=== PATIENT | male | born 1985 | race Caucasian/White ===

== ENCOUNTER 2019-12-01 20:09 | Emergency (ER) | payer MEDICAID ==
[~2019-12-01] VITALS: Ht 175.3 cm; Wt 127.0 kg
[2019-12-01] MEDS ORDERED: VALPROIC ACID 250MG CAPSULE PO ONE (21:00)
[2019-12-01] MEDS: RISPERIDONE 1MG TABLET PO SCH (21:13)
[2019-12-01 21:22] LABS: BASOPHILS % 0.5 % (0.0-2.0); EOSINOPHILS % 1.3 % (0.0-5.0); HEMATOCRIT. 40.4 % (42.0-52.0); HEMOGLOBIN. 13.9 g/dL (14.0-18.0); LYMPHOCYTES % 17.1 % (20.0-50.0); MEAN CORPUSCULAR HEMOGLOBIN 29.8 pg (28.0-32.0); MEAN CORPUSCULAR VOLUME 86.9 fL (80.0-94.0); MEAN PLATELET VOLUME 7.8 fl (7.4-10.4); MONOCYTES % 9.9 % (2.0-8.0); NEUTROPHILS % 71.2 % (40.0-76.0); PLATELET 164 x1000/uL (130-400); RED BLOOD CELL COUNT 4.64 mill/uL (4.7-6.1); RED CELL DISTRIBUTION WIDTH 13.6 % (11.6-14.6)
[2019-12-01 21:28] LABS: CHLORIDE 107 mEq/L (98-107)
[2019-12-01 21:33] LABS: ETHANOL BLOOD < 10 mg/dL
[2019-12-01 21:36] LABS: CLARITY URINE CLEAR (CLEAR); COLOR URINE YELLOW (YELLOW); KETONES URINE NEGATIVE (NEGATIVE); LEUKOCYTE ESTERASE URINE NEGATIVE (NEGATIVE); NITRITE URINE NEGATIVE (NEGATIVE); OCCULT BLOOD URINE NEGATIVE (NEGATIVE); PH URINE 6.5 (4.5-8.0); PROTEIN URINE 1+ (NEGATIVE); SPECIFIC GRAVITY URINE 1.024 (1.005-1.030)
[2019-12-01 21:49] LABS: *BARBITURATES SCREEN URINE NEGATIVE (NEGATIVE)
[2019-12-01 21:51] LABS: *AMPHETAMINES SCREEN URINE NEGATIVE (NEGATIVE); *BENZODIAZEPINES SCREEN URINE NEGATIVE (NEGATIVE); *COCAINE SCREEN URINE NEGATIVE (NEGATIVE); CANNABINOID URINE SCREEN NEGATIVE (NEGATIVE); METHADONE URINE SCREEN NEGATIVE (NEGATIVE); OPIATES URINE SCREEN NEGATIVE (NEGATIVE); PHENCYCLIDINE URINE SCREEN NEGATIVE (NEGATIVE)
[2019-12-02] MEDS ORDERED: LORAZEPAM 2MG/ML CPJ IM ONE (08:45)
[2019-12-02] MEDS: RISPERIDONE 1MG TABLET PO SCH (09:05)
[2019-12-02] MEDS: VALPROIC ACID 250MG CAPSULE PO SCH (17:00)
[2019-12-03] MEDS: RISPERIDONE 1MG TABLET PO SCH (09:37)
[2019-12-03] MEDS: VALPROIC ACID 250MG CAPSULE PO SCH (09:37)
[2019-12-03 15:53] VITALS: BP 150/92
== END 2019-12-03 16:06 ==
LOC: ER 20:09
DX: F20.9 Schizophrenia, unspecified (principal); F81.81 Disorder of written expression; I10 Essential (primary) hypertension; E11.9 Type 2 diabetes mellitus without complications; Z20.828 Contact with and (suspected) exposure to other viral communicable diseases
CPT/HCPCS: 36415; 80053; 80165; 80305; 80307; 80320; 80329; 81003; 82962; 85025; 87426; 93005; 96372; 99285; J2060; G0480